=== PATIENT | male | born 1965 | race Caucasian/White ===

== ENCOUNTER 2016-05-29 12:40 | Emergency (ER) | payer OTHER, MEDICAID ==
[2016-05-29 12:43] VITALS: BMI 32.9
[2016-05-29 12:44] VITALS: RESP 18
--- NOTE | 2016-05-29 13:04 | C.PDOC ---
History Of Present Illness 50M c/o constant epigastric pain, nausea, and vomiting x2 constant since this morning. worse after po intake. no fever, diarrhea, dysuria. denies abd psh. htn took med this am but vomited right after. denies etoh. no recent change in meds. Chief Complaint (Nursing): Abdominal Pain Past Medical History Vital Signs: Last Vital Signs Temp 97.8 F 05/29/16 15:01 Pulse 92 H 05/29/16 15:01 Resp 18 05/29/16 15:01 BP 198/99 H 05/29/16 15:01 Pulse Ox 100 05/29/16 15:44 - Medical History PMH: HTN Family History: States: Unknown Family Hx - Social History Hx Alcohol Use: No Hx Substance Use: No - Immunization History Hx Tetanus Toxoid Vaccination: No Hx Influenza Vaccination: No Hx Pneumococcal Vaccination: No Review Of Systems Except As Marked, All Systems Reviewed And Found Negative. Constitutional: Negative for: Fever, Chills, Weakness Cardiovascular: Negative for: Chest Pain Respiratory: Negative for: Cough, Shortness of Breath Gastrointestinal: Positive for: Nausea, Vomiting, Abdominal Pain. Negative for : Diarrhea Genitourinary: Negative for: Dysuria, Frequency Neurological: Negative for: Weakness, Numbness, Headache Physical Exam - Physical Exam Appears: Non-toxic, No Acute Distress Skin: Warm, Dry Head: Atraumatic Eye(s): bilateral: PERRL Oral Mucosa: Moist Neck: Normal ROM Cardiovascular: Rhythm Regular Respiratory: No Decreased Breath Sounds, No Accessory Muscle Use Gastrointestinal/Abdominal: Bowel Sounds, Soft, Tenderness (RUQ only), No Distention, No Guarding, No Rebound Extremity: No Swelling Neurological/Psych: Oriented x3, Other (no focal deficits) ED Course And Treatment - Laboratory Results Result Diagrams: 05/29/16 13:43 05/29/16 13:43 O2 Sat by Pulse Oximetry: 100 - CT Scan/US US GALLBLADDER Other Rad Studies (CT/US): Read By Radiologist, Radiology Report Reviewed CT/US Interpretation: Accession No. : [id number]. Patient Name / ID : FABIAN YUN / [id number]. Exam Date : 05/29/2016 14:13:28 ( Approved ). Study Comment : Sex / Age : M / 50Y. Creator : Bruce Graves MD. Dictator : Bruce Graves MD. Electric Meter Inspector : [employer] : Bruce Graves MD. Approver2 : Report Date : 05/29/2016 14:49:02. My Comment : . HISTORY: RUQ pain and ttp. COMPARISON: None. TECHNIQUE: Sonographic evaluation of the right upper quadrant of the abdomen. FINDINGS: LIVER: Measures 15.6 cm in length. Normal echogenicity of the liver parenchyma. No mass. No intrahepatic bile duct dilatation. Hepatopetal portal venous flow demonstrated. GALLBLADDER: Cholelithiasis. No mural thickening. No pericholecystic fluid. Negative sonographic Berumen's sign. COMMON BILE DUCT: Measures 6 mm. No stones. No dilatation. PANCREAS: Unremarkable as visualized. No mass. No ductal dilatation. RIGHT KIDNEY: Measures 11.1 cm in length. Normal echogenicity. No calculus, mass, or hydronephrosis. AORTA: No aneurysmal dilatation. IVC: Unremarkable. OTHER FINDINGS: None . IMPRESSION: Cholelithiasis without sonographic evidence of cholecystitis. Otherwise unremarkable. Medical Decision Making Medical Decision Makin the pt says his pain is "much better." I offered to admit him for further pain control but he wishes to go home. he has a f/u appt w his pcp tomorrow already scheduled. will refer to surgeon as well. return if worse. Disposition - Disposition Referrals: Alberto Grewal MD [Staff Provider] - Disposition: HOME/ ROUTINE Disposition Time: 16:16 Condition: IMPROVED Additional Instructions: Please follow up with your doctor tomorrow. Follow up with a surgeon as well. Return to the ER for any worsening symptoms, fever, repeated vomiting, change in skin color, or for any other concerns. Prescriptions: Acetaminophen with Codeine [Tylenol with Codeine #3 Tablet] 1 each PO Q4H PRN # 10 tablet PRN Reason: Pain, Moderate (4-7) Ondansetron ODT [Zofran ODT] 4 mg PO Q4H PRN #10 odt PRN Reason: Nausea/Vomiting Instructions: Biliary Colic (ED), Gallstones (ED) Forms: General Discharge Instructions - Clinical Impression Clinical Impression: Biliary colic
[2016-05-29] MEDS ORDERED: Sodium Chloride 0.9% 1,000 ML IV ONE (13:18)
[2016-05-29] MEDS ORDERED: Morphine 4 MG/ML VIAL ONE ×2 (13:38→15:04)
[2016-05-29] MEDS ORDERED: Sodium Chloride 0.9% 1,000 ML ONE (13:38)
[2016-05-29 13:49] LABS: BASO # 0.1 K/uL (0.0-0.2); BASO % 0.6 % (0.0-2.0); EOS # 0.1 K/uL (0.0-0.7); EOS % 0.5 % (0.0-4.0); HEMATOCRIT 42.7 % (35.0-51.0); LYMPH # 1.4 K/uL (1.0-4.3); LYMPH % 11.1 % (20.0-40.0); MEAN CELL VOLUME 89.5 fL (80.0-94.0); MEAN CORPUSCULAR HEMOGLOBIN 29.5 pg (27.0-31.0); MEAN CORPUSCULAR HGB CONC 32.9 g/dL (33.0-37.0); MEAN PLATELET VOLUME 8.3 fL (7.2-11.7); MONO # 0.5 K/uL (0.0-0.8); MONO % 4.1 % (0.0-10.0); NRBC % 0.1 % (0.0-2.0); RED CELL DISTRIBUTION WIDTH 13.6 % (11.5-14.5); WHITE BLOOD COUNT 12.9 K/uL (4.8-10.8)
[2016-05-29 13:54] LABS: CHLORIDE 103 mmol/L (98-107)
[2016-05-29 13:55] LABS: POTASSIUM 4.2 mmol/L (3.6-5.2); SODIUM 137 mmol/L (132-148)
[2016-05-29 13:57] LABS: ALKALINE PHOSPHATASE 65 U/L (38-126); AST/SGOT 15 U/L (17-59); BILIRUBIN,TOTAL 0.2 mg/dL (0.2-1.3); BLOOD UREA NITROGEN 12 mg/dL (9-20); CARBON DIOXIDE 21 mmol/L (22-30); GFR AFRICAN-AMERICAN > 60; TOTAL PROTEIN 7.7 g/dL (6.3-8.3)
[2016-05-29 13:58] LABS: ALT/SGPT 13 U/L (21-72); CALCIUM 8.7 mg/dl (8.6-10.4); GLUCOSE,RANDOM 115 mg/dL (75-110)
--- NOTE | 2016-05-29 14:50 | US ---
HISTORY: RUQ pain and ttp COMPARISON: None. TECHNIQUE: Sonographic evaluation of the right upper quadrant of the abdomen. FINDINGS: LIVER: Measures 15.6 cm in length. Normal echogenicity of the liver parenchyma. No mass. No intrahepatic bile duct dilatation. Hepatopetal portal venous flow demonstrated. GALLBLADDER: Cholelithiasis. No mural thickening. No pericholecystic fluid. Negative sonographic Berumen's sign. COMMON BILE DUCT: Measures 6 mm. No stones. No dilatation. PANCREAS: Unremarkable as visualized. No mass. No ductal dilatation. RIGHT KIDNEY: Measures 11.1 cm in length. Normal echogenicity. No calculus, mass, or hydronephrosis. AORTA: No aneurysmal dilatation. IVC: Unremarkable. OTHER FINDINGS: None . IMPRESSION: Cholelithiasis without sonographic evidence of cholecystitis. Otherwise unremarkable.
[2016-05-29 16:07] LABS: RBC URINE 1 /hpf (0-3); URINE BILIRUBIN NEGATIVE (NEGATIVE); URINE BLOOD NEGATIVE (NEGATIVE); URINE COLOR Yellow (YELLOW); URINE GLUCOSE (UA) NORMAL (Normal); URINE KETONE NEGATIVE (NEGATIVE); URINE LEUKOCYTE ESTERASE NEG Leu/uL (Negative); URINE PROTEIN NEGATIVE (NEGATIVE); URINE UROBILINOGEN NORMAL mg/dL (0.2-1.0); WBC URINE 1 /hpf (0-5)
[2016-05-29 16:43] VITALS: BP 161/93; PULSE 72; TEMP 98; O2SAT 95
== END 2016-05-29 16:43 | disposition home or self-care (01) ==
LOC: C.ER 12:40
DX: K80.50 Calculus of bile duct without cholangitis or cholecystitis without obstruction (principal)
CPT/HCPCS: 76705; 80053; 81001; 83690; 85025; 96361; 96374; 96375; 96376; 99285; J1885; J2270; J2405; J7040